=== PATIENT | female | born 1965 | race African-American/Black ===

== ENCOUNTER → 2016-08-22 | Outpatient (CLI) | payer MEDICARE, MEDICAID | END | disposition home or self-care (01) | LOC: MAMMO 08:47 | PROVIDERS: ATTEND Physician Assistant | DX: Z12.31 Encounter for screening mammogram for malignant neoplasm of breast (principal) | CPT/HCPCS: G0202; 77067 ==

== ENCOUNTER 2017-04-20 13:30 | Emergency (ER) | payer MEDICARE, MEDICAID ==
[~2017-04-20] VITALS: Ht 149.9 cm; Wt 163.3 kg
[2017-04-20 13:45] VITALS: BP 117/71
[2017-04-20] MEDS ORDERED: NAPR-695 PO (13:58)
[2017-04-20] MEDS ORDERED: CYCL-331 PO (13:58)
--- NOTE | 2017-04-20 13:59 | PHYS DOC ---
Adult General Chief Complaint Chief Complaint: Neck Pain HPI HPI Patient is a 51 year old female who presents with complaint of right-sided neck pain. Patient states that 3 days ago she had turned her head suddenly to the right as her nephew was walking by and felt a pinch in her neck. Patient states that the pain has persisted and has gradually worsened since onset of symptoms. Patient states that the pain runs along the right side of her neck towards the top of her chest and worsens when she tries to turn her head towards the right. Patient denies any pain radiating to her right shoulder and denies any associated numbness or tingling in the extremities. The patient states that she has used Biofreeze along the right side of her neck with no relief in symptoms. Patient states that the pain usually is worse in the morning and describes it as tightness and sharp. Patient rates her pain currently is 8 out of 10 on my examination. Due to continued symptoms patient came to the emergency department for evaluation. Review of Systems Review of Systems Constitutional: Denies fever or chills [] Eyes: Denies change in visual acuity, redness, or eye pain [] HENT: Denies nasal congestion or sore throat [] Respiratory: Denies cough or shortness of breath [] Cardiovascular: Denies chest pain or edema[] GI: Denies abdominal pain, nausea, vomiting, bloody stools or diarrhea [] : Denies dysuria or hematuria [] Musculoskeletal: Right-sided neck pain[] Integument: Denies rash or skin lesions [] Neurologic: Denies headache, focal weakness or sensory changes [] All other systems were reviewed and found to be within normal limits, except as documented in this note. Allergies Allergies No known drug allergies Physical Exam Physical Exam Constitutional: Alert, morbidly obese, appears in mild discomfort. [] HENT: Normocephalic, atraumatic, bilateral external ears normal, oropharynx moist, no oral exudates, nose normal. [] Eyes: PERRLA, EOMI, conjunctiva normal, no discharge. [] Neck: No midline tenderness, trachea midline, tenderness to palpation along distribution of right sternocleidomastoid muscle, elicited tenderness when turning head to the right but range of motion is intact. [] Cardiovascular:Heart rate regular rhythm, no murmur [] Lungs & Thorax: Bilateral breath sounds clear to auscultation [] Abdomen: Bowel sounds normal, soft, no tenderness, no masses, no pulsatile masses. [] Skin: Warm, dry, no erythema, no rash. [] Back: No tenderness, no CVA tenderness. [] Extremities: No tenderness, no cyanosis, no clubbing, ROM intact, no edema. [] Neurologic: Alert and oriented X 3, normal motor function, normal sensory function, no focal deficits noted. [] Current Patient Data Vital Signs Vital signs were reviewed and are stable Lab Results None performed EKG EKG Not performed[] Radiology/Procedures Radiology/Procedures Not performed[] Course & Med Decision Making Course & Med Decision Making Pertinent Labs and Imaging studies reviewed. (See chart for details) The patient has clinical findings consistent with muscle strain of the sternocleidomastoid muscle. Patient was started on naproxen in the emergency department. The patient will continue on cyclobenzaprine and naproxen for outpatient treatment. Advise follow-up in one week with primary doctor if symptoms are not improving and return to the emergency department for any worsening symptoms. Patient voiced understanding and in agreement with treatment plan. Dragon Disclaimer Dragon Disclaimer This electronic medical record was generated, in whole or in part, using a voice recognition dictation system. Departure Departure: Impression: Primary Impression: Strain of sternocleidomastoid muscle Disposition: 01 HOME, SELF-CARE Condition: IMPROVED Referrals: YONY BETANCOURT (PCP) Patient Instructions: Muscle Strain Additional Instructions: Follow-up with your primary doctor in 1 week if symptoms are not improving. Return to the emergency department for any worsening symptoms. Scripts Naproxen (NAPROXEN) 375 Mg Tablet 1 TAB PO BID Y for PAIN, #20 TAB 0 Refills Prov: STEPHIE BARR MD 04/20/17 Cyclobenzaprine Hcl (CYCLOBENZAPRINE HCL) 10 Mg Tablet 1 TAB PO QHS Y for MUSCLE SPASMS, #15 TAB Prov: STEPHIE BARR MD 04/20/17 Problem Qualifiers Primary Impression: Strain of sternocleidomastoid muscle Encounter type: initial encounter Qualified Codes: S16.1XXA - Strain of muscle, fascia and tendon at neck level, initial encounter STEPHIE BARR MD Apr 20, 2017 13:59
[2017-04-20] MEDS ORDERED: NAPROXEN 500 MG TABLET PO STA (14:08)
== END 2017-04-20 14:14 | disposition home or self-care (01) ==
LOC: ER 13:30
DX: S16.1XXA Strain of muscle, fascia and tendon at neck level, initial encounter (principal); X50.9XXA Other and unspecified overexertion or strenuous movements or postures, initial encounter; Y93.89 Activity, other specified; Y99.8 Other external cause status; Y92.89 Other specified places as the place of occurrence of the external cause
CPT/HCPCS: 99283

== ENCOUNTER → 2017-08-28 | Outpatient (CLI) | payer MEDICAID, MEDICARE, OTHER ==
[~2017-08-28] MED LIST: CYCL-331 PO; NAPR-695 PO
--- NOTE | 2017-09-01 10:41 | RAD ---
DATE: 08/28/2017 EXAM: DIGITAL SCREEN BILAT W/CAD HISTORY: Routine screening COMPARISON: 03/15/2015 This study was interpreted with the benefit of Computerized Aided Detection (CAD). The breast parenchyma shows scattered fibroglandular densities. Breast parenchyma level B. FINDINGS: The fibroglandular pattern is somewhat nodular in character. There are coarse calcifications within several of these nodules compatible with sclerotic fibroadenomas. No new or enlarging breast densities are seen. A wire-like opacity is again noted in the right breast at the 12:00 location. A few other scattered benign type calcifications are noted. No suspicious microcalcifications have developed. IMPRESSION: Stable mammograms without evidence of malignancy. BI-RADS CATEGORY: 2 BENIGN FINDING(S) RECOMMENDED FOLLOW-UP: 12M 12 MONTH FOLLOW-UP PQRS compliance statement: Patient information was entered into a reminder system with a target due date for the next mammogram. Mammography is a sensitive method for finding small breast cancers, but it does not detect them all and is not a substitute for careful clinical examination. A negative mammogram does not negate a clinically suspicious finding and should not result in delay in biopsying a clinically suspicious abnormality. "Our facility is accredited by the [employer] Mammography Program."
== END | disposition home or self-care (01) ==
LOC: MAMMO 09:53
PROVIDERS: ATTEND Physician Assistant
DX: Z12.31 Encounter for screening mammogram for malignant neoplasm of breast (principal)
CPT/HCPCS: 77067